=== PATIENT | male | born 1985 | race Caucasian/White ===

== ENCOUNTER 2025-07-18 10:46 | Day surgery (SDC) | payer BC ==
[2025-07-17 12:20] VITALS: BMI 46.2
[2025-07-18 11:49] LABS: #Basophils 0.04 10x3/uL (0.0-0.2); #Eosinophils 0.53 10x3/uL (0.0-0.7); #Monocytes 0.48 10x3/uL (0.11-0.59); #Neutrophils 3.80 10x3/uL (1.40-6.50); %Basophils 0.6 % (0.0-1.0); %Eosinophils 7.8 % (0.0-10.0); %Lymphocytes 28.1 % (21.0-51.0); %Monocytes 7.1 % (0.0-10.0); %Neutrophils 56.3 % (42.0-75.0); Hematocrit 40.6 % (42.0-52.0); Hemoglobin 13.5 g/dL (14.0-18.0); Mean Corpuscular Hemoglobin 29.3 pg (27.0-31.0); Mean Corpuscular Volume 88.3 fL (78.0-98.0); Platelet Count 222 10x3/uL (130-400); Red Blood Cell (RBC) Count 4.60 mill/uL (4.70-6.10); White Blood Cell (WBC) Count 6.76 10x3/uL (4.8-10.8)
[2025-07-18] MEDS ORDERED: PROPOFOL 200 MG/20 ML VIAL ONE (12:47)
[2025-07-18] MEDS ORDERED: Lidocaine 1% PF 5 ML VIAL ONE (12:47)
[2025-07-18] MEDS ORDERED: Lidocaine 20 ML, Aluminum & Magnesium Hydroxide 30 ML, Donnatal Elixir 32.4 MG SSW SCH (14:45)
== END 2025-07-18 15:35 | disposition home or self-care (01) ==
LOC: SDC 10:46
PROVIDERS: ATTEND Internal Medicine Cardiovascular Disease
PROC: B24BZZ4 Ultrasonography of Heart with Aorta, Transesophageal (ICD-10-PCS; principal; 2025-07-18)
DX: I63.9 Cerebral infarction, unspecified (principal); I07.1 Rheumatic tricuspid insufficiency; Z90.89 Acquired absence of other organs; Z88.0 Allergy status to penicillin; Z79.01 Long term (current) use of anticoagulants
CPT/HCPCS: 85025; 93005; 93010; 93312; J2704